=== PATIENT | male | born 1970 | race Caucasian/White ===

== ENCOUNTER 2021-05-12 07:10 | Day surgery (SDC) | payer BC ==
[~2021-05-12] VITALS: Ht 172.7 cm; Wt 74.4 kg
[2021-05-12] MEDS ORDERED: 0.9%NACL 1000ML 1,000 ML IV ONE (07:24)
[2021-05-12 07:45] VITALS: BP 123/73
[2021-05-12] MEDS ORDERED: MIDAZOLAM HCL 1 MG/ML 2ML VIAL ONE (07:53)
[2021-05-12] MEDS ORDERED: PROPOFOL 10 MG/ML 20ML VIAL IV ONE (07:53)
[2021-05-12] MEDS ORDERED: LIDOCAINE PF 100MG/5ML (2%) SYRINGE 5ML ONE (07:54)
[2021-05-12] MEDS ORDERED: FENTANYL CITRATE PF 50 MCG/1 ML 2ML VIAL ONE (09:42)
[2021-05-12 09:50] VITALS: BP 102/62
[2021-05-12 09:55] VITALS: BP 104/63
[2021-05-12 10:00] VITALS: BP 100/61
[2021-05-12 10:10] VITALS: BP 105/66
[2021-05-12 10:20] VITALS: BP 107/71
== END 2021-05-12 10:20 | disposition home or self-care (01) ==
LOC: DAH 07:10
PROVIDERS: ATTEND Internal Medicine Gastroenterology
DX: Z12.11 Encounter for screening for malignant neoplasm of colon (principal); E78.5 Hyperlipidemia, unspecified; Z98.890 Other specified postprocedural states; Z79.899 Other long term (current) drug therapy
CPT/HCPCS: 45378; A4215 ×2; A4221; A4222; A4223; A4606; A4620; A4663; J2001; J2250; J2704; J3010; J7030; G0121

== ENCOUNTER → 2023-02-10 | Outpatient (CLI) | payer OTHER | END | disposition home or self-care (01) | LOC: OIH 11:31 | PROVIDERS: ATTEND Nurse Practitioner Family | DX: Z13.6 Encounter for screening for cardiovascular disorders (principal); R93.1 Abnormal findings on diagnostic imaging of heart and coronary circulation | CPT/HCPCS: 75571 ==